=== PATIENT | male | born 1945 | race Caucasian/White ===

== ENCOUNTER 2018-02-16 14:09 | Emergency (ER) | payer MEDICARE, OTHER ==
--- NOTE | 2018-02-16 15:37 | RAD ---
PA AND LATERAL CHEST: HISTORY: Cough. FINDINGS: Heart size is within normal limits. There are atherosclerotic changes of the aorta. The lungs are c lear of infiltrates. An old left rib fracture is noted. IMPRESSION: No active intrathoracic disease. POS: [facility]
== END 2018-02-16 15:51 | disposition home or self-care (01) ==
LOC: SCSER 14:09
DX: R05 Cough (principal); E78.5 Hyperlipidemia, unspecified; I10 Essential (primary) hypertension; Z79.899 Other long term (current) drug therapy
CPT/HCPCS: 71046; 94640; 94760; J7620

== ENCOUNTER 2020-12-12 10:32 | Outpatient (CLI) | payer MEDICARE, OTHER ==
[2020-12-12 20:04] LABS: SARS-CoV-2 PCR by NAA Not Detected (NotDetected)
== END 2020-12-12 10:33 | disposition home or self-care (01) ==
LOC: LABBT 10:32
PROVIDERS: ATTEND Ophthalmology Retina Specialist
DX: Z01.812 Encounter for preprocedural laboratory examination (principal); H35.371 Puckering of macula, right eye; Z20.822 Contact with and (suspected) exposure to COVID-19
CPT/HCPCS: U0003; U0005

== ENCOUNTER 2020-12-15 | Day surgery (SDC) | payer MEDICARE, OTHER | END 2020-12-15 10:45 | disposition home or self-care (01) | PROC: 08T43ZZ Resection of Right Vitreous, Percutaneous Approach (ICD-10-PCS; principal; 2020-12-15) | PROC: 08NE3ZZ Release Right Retina, Percutaneous Approach (ICD-10-PCS; 2020-12-15) ==

== ENCOUNTER 2021-09-07 10:17 | Outpatient (CLI) | payer MEDICARE, OTHER | END 2021-09-07 10:18 | disposition home or self-care (01) | LOC: CT 10:17 | PROVIDERS: ATTEND Thoracic Surgery (Cardiothoracic Vascular Surgery) | DX: I25.10 Atherosclerotic heart disease of native coronary artery without angina pectoris (principal); I10 Essential (primary) hypertension; I77.89 Other specified disorders of arteries and arterioles; I65.21 Occlusion and stenosis of right carotid artery; I70.8 Atherosclerosis of other arteries | CPT/HCPCS: 70498; 82565 ==